=== PATIENT | male | born 1990 | race Two or more races ===

== ENCOUNTER → 2024-06-10 | Outpatient (CLI) | payer MEDICAID, SELFPAY ==
--- NOTE | 2024-06-10 | XR_ITS ---
Examination: Wrist, right 3 views Technique: Wrist AP, oblique, lateral 3 views Date and time of exam: June 10, 2024 1220 hours INDICATIONS: Onset right wrist pain today. FINDINGS: Mild osteoarthritis navicular trapezium first carpometacarpal joints No fracture or dislocation no avascular necrosis IMPRESSION: Mild osteoarthritis
== END | disposition home or self-care (01) ==
PROVIDERS: PCP Physician Assistant; Referring Provider Obstetrics & Gynecology; Visit Provider Obstetrics & Gynecology
DX: M19.031 Primary osteoarthritis, right wrist (principal)
CPT/HCPCS: 73110